=== PATIENT | female | born 1960 | race African-American/Black ===

== ENCOUNTER 2019-09-12 12:00 | Inpatient (IN) | payer MEDICAID, OTHER ==
[~2019-09-12] VITALS: Ht 160 cm; Wt 89.4 kg
[~2019-09-12 12:00] MED LIST: ALBU18 INH; ALPR1TAB7 PO; CARI-277 PO; DIPH50CA PO; HYDR-2595 PO; LISI-646 PO; METO-158 PO; OMEP-337 PO; SENN8.6T92 PO; SIMV-8 PO
[2019-09-12] MEDS ORDERED: ALBUTEROL SULF 2.5 MG/0.5ML(0.5%) NEB SOLN NEB ONE ×2 (12:45→16:15)
[2019-09-12] MEDS ORDERED: IPRATROPIUM BROM 0.5 MG/2.5ML INH SOL NEB ONE (12:45)
[2019-09-12 12:55] LABS: Basophils # (auto) 0 uL; Basophils % (auto) 0.4 % (0.0-2.0); Eosinophils # (auto) 0 uL; Eosinophils % (auto) 0.1 % (0.0-7.0); Hematocrit 41.4 % (36.0-46.0); Hemoglobin 13.7 g/dL (12.2-16.2); Lymphocytes # (auto) 1.1 uL; Lymphocytes % (auto) 8.4 % (10.0-50.0); Mean Corpuscular Hemoglobin 29.9 pg (28.0-32.0); Mean Corpuscular Hgb Conc. 33.2 g/dL (32.0-36.0); Monocytes # (auto) 0.7 uL; Monocytes % (auto) 5.3 % (0.0-12.0); Neutrophils # (auto) 11.1 uL; Neutrophils % (auto) 85.8 % (37.0-80.0); Nucleated Red Blood Cells % 0.1 %; Platelet Count (auto) 225 10^3/uL (140-450); Red Cell Distribution Width 14.3 % (11.8-14.3); White Blood Cell 12.9 10^3/uL (4.4-10.8)
[2019-09-12 13:20] LABS: Albumin 3.7 g/dL (3.4-5.0); Anion Gap 6 (5-15); Blood Urea Nitrogen 9 mg/dL (7-18); Calcium 9.1 mg/dL (8.5-10.1); Carbon Dioxide 26 mmol/L (21-32); Chloride 106 mmol/L (98-107); Glucose 109 mg/dL (74-106); Sodium 138 mmol/L (136-145)
[2019-09-12 13:25] LABS: Alanine Aminotransferase 17 U/L (13-56); Alkaline Phosphatase 87 U/L (45-117); Aspartate Aminotransferase 20 U/L (15-37); BUN/Creatinine Ratio 13.2; Bilirubin, Total 0.1 mg/dL (0.2-1.0); GFR African American 115 mL/min; GFR Non-African American 95 mL/min; Total Protein 8.3 g/dL (6.4-8.2)
[2019-09-12] MEDS ORDERED: cefTRIAXone 1GM/50ML D5W 50 ML IV ONE (13:30)
[2019-09-12] MEDS ORDERED: methylPREDNISolone SOD SUCC 125 MG/2 ML VL IV ONE (13:30)
[2019-09-12] MEDS ORDERED: EPINEPHrine HCL 1 MG/1 ML AMP ONE (14:21)
[2019-09-12] MEDS ORDERED: EPINEPHrine HCL 1 MG/1 ML AMP SC ONE (14:30)
[2019-09-12 14:33] LABS: Urine Bacteria NONE SEEN /hpf (None Seen); Urine Blood Negative /uL (Negative); Urine Specific Gravity 1.005 (1.001-1.035); Urine WBC <1 /hpf (0 - 5)
[2019-09-12] MEDS ORDERED: diphenhdrAMINE HCL 50 MG/1 ML VL ONE (14:34)
[2019-09-12] MEDS ORDERED: diphenhdrAMINE HCL 50 MG/1 ML VL IV ONE (14:45)
[2019-09-12] MEDS: SODIUM CHLORIDE 0.9% 1,000 ML IV SCH (15:12)
[2019-09-12] MEDS ORDERED: PROMETHAZINE HCL 25 MG/ML 1ML IV PRN (15:15)
[2019-09-12] MEDS ORDERED: NITROGLYCERIN 0.4 MG SL TAB SL PRN (15:15)
[2019-09-12] MEDS ORDERED: traMADol HCL 50 MG TAB PO PRN (15:15)
[2019-09-12] MEDS ORDERED: MORPHINE SULF INJ 2 MG/ML SYRINGE 1ML IV PRN (15:15)
[2019-09-12] MEDS: IPRATROPIUM BROM 0.5 MG/2.5ML INH SOL NEB SCH (18:00)
[2019-09-12] MEDS: ALBUTEROL SULF 2.5 MG/0.5ML(0.5%) NEB SOLN NEB SCH (18:00)
[2019-09-12] MEDS: methylPREDNISolone SOD SUCC 40 MG/ML VL IV SCH (18:32)
[2019-09-12 19:53] VITALS: BP 133/89
[2019-09-12 20:30] VITALS: BP 121/54
[2019-09-12] MEDS: HYDROcodone-ACET 10/325MG TAB PO PRN (22:29)
[2019-09-13] MEDS: methylPREDNISolone SOD SUCC 40 MG/ML VL IV SCH ×5 (00:14→17:44)
[2019-09-13] MEDS: IPRATROPIUM BROM 0.5 MG/2.5ML INH SOL NEB SCH ×4 (00:50→20:32)
[2019-09-13] MEDS: ALBUTEROL SULF 2.5 MG/0.5ML(0.5%) NEB SOLN NEB SCH ×4 (00:50→20:33)
[2019-09-13] MEDS: CARISOPRODOL 350 MG TAB PO PRN ×3 (01:26→22:10)
[2019-09-13] MEDS: guaiFENesin 200 MG/10 ML UD PO PRN ×4 (01:26→14:51)
[2019-09-13] MEDS: SODIUM CHLORIDE 0.9% 1,000 ML IV SCH ×2 (04:32→17:44)
[2019-09-13 05:00] VITALS: BP 152/81
[2019-09-13] MEDS: HYDROcodone-ACET 10/325MG TAB PO PRN ×3 (06:25→14:51)
[2019-09-13] MEDS: AZITHROMYCIN 500MG/ 250ML 250 ML IV SCH (09:49)
[2019-09-13] MEDS: ENOXAPARIN SOD 40 MG/0.4 ML SYRINGE SC SCH (09:49)
[2019-09-13 09:56] VITALS: BP 146/109
[2019-09-13 12:55] VITALS: BP 149/75
[2019-09-13 17:01] VITALS: BP 137/99
--- NOTE | 2019-09-13 19:57 | NUR ---
Opening shift note Patient is A&O x4. Family is at the bedside. Patient reports SOB at rest and on exertion. Currently on 3L NC. Reports using 4L at home. Inspiratory and expiratory wheezes noted throughout, anteriorly and posteriorly. O2 increased to 4L. Patient denies pain at this time. Instructed patient to call for assistance when needing to ambulate. Verbalizes understanding. Bed is in low locked position with side rails up x2. Call light is within reach. Will continue to monitor for changes PRN.
[2019-09-13 22:00] VITALS: BP 148/84
[2019-09-13] MEDS: ALPRAZolam 0.5 MG TAB PO PRN (22:10)
[2019-09-14] MEDS: ALBUTEROL SULF 2.5 MG/0.5ML(0.5%) NEB SOLN NEB SCH ×5 (00:18→23:58)
[2019-09-14] MEDS: IPRATROPIUM BROM 0.5 MG/2.5ML INH SOL NEB SCH ×5 (00:18→23:58)
[2019-09-14] MEDS: methylPREDNISolone SOD SUCC 40 MG/ML VL IV SCH ×4 (00:28→18:24)
--- NOTE | 2019-09-14 02:59 | NUR ---
Patient reports dryness in nares. Humidification chamber added to 02. Patient tolerates well.
[2019-09-14 06:00] VITALS: BP 138/89
[2019-09-14] MEDS: SODIUM CHLORIDE 0.9% 1,000 ML IV SCH (07:12)
[2019-09-14 08:54] VITALS: BP 127/66
[2019-09-14] MEDS: HYDROcodone-ACET 10/325MG TAB PO PRN ×2 (09:17→20:01)
[2019-09-14] MEDS: ALBUTEROL SULF 2.5 MG/0.5ML(0.5%) NEB SOLN NEB PRN (09:55)
[2019-09-14] MEDS: ENOXAPARIN SOD 40 MG/0.4 ML SYRINGE SC SCH (10:04)
[2019-09-14] MEDS: AZITHROMYCIN 500MG/ 250ML 250 ML IV SCH (10:04)
[2019-09-14] MEDS: ALPRAZolam 0.5 MG TAB PO PRN (10:13)
[2019-09-14] MEDS: guaiFENesin 200 MG/10 ML UD PO PRN (10:31)
[2019-09-14] MEDS ORDERED: FUROSEMIDE 40 MG/4 ML VIAL IV ONE (10:45)
[2019-09-14] MEDS ORDERED: POTASSIUM EFFERVESENT TAB 25 MEQ PO ONE (10:45)
[2019-09-14 12:50] VITALS: BP 120/78
[2019-09-14 17:21] VITALS: BP 141/89
--- NOTE | 2019-09-14 19:40 | NUR ---
Opening shift note Patient is A&O x4. Reports SOB at rest and on exertion. Currently on 3L NC; reports using 4L at home. Inspiratory and expiratory wheezes noted throughout, anteriorly and posteriorly. Patient denies pain at this time. Instructed patient to call for assistance when needing to ambulate. Verbalizes understanding. Bed is in low locked position with side rails up x2. Call light is within reach. Will continue to monitor for changes PRN.
[2019-09-14 21:09] VITALS: BP 141/89
[2019-09-14 22:00] VITALS: BP 146/95
[2019-09-15] MEDS: methylPREDNISolone SOD SUCC 40 MG/ML VL IV SCH ×5 (00:06→23:37)
[2019-09-15] MEDS: CARISOPRODOL 350 MG TAB PO PRN ×2 (00:06→15:09)
[2019-09-15] MEDS: HYDROcodone-ACET 10/325MG TAB PO PRN ×3 (04:16→23:55)
[2019-09-15 05:00] VITALS: BP 139/81
[2019-09-15] MEDS: ACETAMINOPHEN 500 MG TAB PO PRN (05:29)
[2019-09-15] MEDS: ALBUTEROL SULF 2.5 MG/0.5ML(0.5%) NEB SOLN NEB SCH ×4 (06:58→23:59)
[2019-09-15] MEDS: IPRATROPIUM BROM 0.5 MG/2.5ML INH SOL NEB SCH ×4 (06:58→23:59)
--- NOTE | 2019-09-15 07:55 | NUR ---
Opening Shift Note Assumed care of patient, awake and alert sitting up in bed. No S/S of distress/SOB or pain. Instructed on POC and to call for assist PRN, bed in locked and lowest position and call light is within reach. Will continue to monitor for changes Q1hr and PRN.
[2019-09-15 09:00] VITALS: BP 149/92
--- NOTE | 2019-09-15 10:36 | NUR ---
Dr. Addison bedside with patient discussing plan of care. Orders carried out as given per Doctor.
[2019-09-15] MEDS: AZITHROMYCIN 500MG/ 250ML 250 ML IV SCH (10:41)
[2019-09-15] MEDS: ENOXAPARIN SOD 40 MG/0.4 ML SYRINGE SC SCH (10:41)
--- NOTE | 2019-09-15 10:56 | NUR ---
Patient leaving floor via WC for Chest CT
[2019-09-15] MEDS: guaiFENesin 200 MG/10 ML UD PO SCH ×3 (11:47→21:31)
[2019-09-15 13:00] VITALS: BP 163/97
[2019-09-15] MEDS ORDERED: HYDR12.56 PO (14:43)
[2019-09-15] MEDS ORDERED: FAMO-12 PO (14:43)
[2019-09-15] MEDS ORDERED: CLON0.1T PO (14:43)
--- NOTE | 2019-09-15 15:00 | NUR ---
Paged Dr. Addison regarding patients BP, 165/97. Home meds have been updated to reflect the BP meds taken at home. Patient would like medications started.
--- NOTE | 2019-09-15 15:18 | NUR ---
Spoke to Dr. Addison regarding patients BP. Orders received and carried out.
[2019-09-15] MEDS: cloNIDine HCL 0.1 MG TAB PO SCH (15:34)
[2019-09-15 17:00] VITALS: BP 150/101
[2019-09-15] MEDS ORDERED: cloNIDine HCL 0.1 MG TAB ONE (18:06)
[2019-09-15] MEDS: cloNIDine HCL 0.1 MG TAB PO PRN (18:10)
[2019-09-15] MEDS: ALPRAZolam 0.5 MG TAB PO PRN (18:27)
--- NOTE | 2019-09-15 19:30 | NUR ---
Opening Shift Note Assumed care of patient, AOx4. No S/S of distress/SOB or pain. Fall and safety precautions in place. Call light within reach. Instructed on POC and to call for assist PRN, will continue to monitor for changes Q1hr and PRN.
[2019-09-15 22:00] VITALS: BP 140/95
[2019-09-16] MEDS: ACETAMINOPHEN 500 MG TAB PO PRN (01:41)
[2019-09-16] MEDS: TEMAZEPAM 15 MG CAP PO PRN (02:50)
--- NOTE | 2019-09-16 03:28 | NUR ---
RT Paged RT paged for patient's SOB. Will continue to monitor.
[2019-09-16] MEDS: ALBUTEROL SULF 2.5 MG/0.5ML(0.5%) NEB SOLN NEB PRN (03:33)
[2019-09-16 05:17] VITALS: BP 143/89
[2019-09-16] MEDS: methylPREDNISolone SOD SUCC 40 MG/ML VL IV SCH ×4 (06:08→23:02)
[2019-09-16] MEDS: guaiFENesin 200 MG/10 ML UD PO SCH ×4 (06:09→22:12)
[2019-09-16] MEDS: IPRATROPIUM BROM 0.5 MG/2.5ML INH SOL NEB SCH ×3 (06:41→19:02)
[2019-09-16] MEDS: ALBUTEROL SULF 2.5 MG/0.5ML(0.5%) NEB SOLN NEB SCH ×3 (06:42→19:02)
--- NOTE | 2019-09-16 07:45 | NUR ---
Opening Shift Note Assumed care of patient, awake and alert, sitting up in bed eating breakfast. No S/S of distress/SOB or pain. Instructed on POC and to call for assist PRN, bed in locked and lowest position and call light within reach. Will continue to monitor for changes Q1hr and PRN.
[2019-09-16 08:00] VITALS: BP 151/104
[2019-09-16] MEDS ORDERED: PANT40TA2 PO (08:25)
[2019-09-16] MEDS: HYDROcodone-ACET 10/325MG TAB PO PRN ×3 (08:33→21:15)
[2019-09-16] MEDS: AZITHROMYCIN 500MG/ 250ML 250 ML IV SCH (09:21)
[2019-09-16] MEDS: cloNIDine HCL 0.1 MG TAB PO SCH (09:21)
[2019-09-16] MEDS: ENOXAPARIN SOD 40 MG/0.4 ML SYRINGE SC SCH (09:22)
[2019-09-16] MEDS: HCTZ 25 MG TAB PO SCH (09:22)
[2019-09-16 10:57] LABS: Hematocrit 39.8 % (36.0-46.0); Mean Corpuscular Hemoglobin 29.9 pg (28.0-32.0); Mean Corpuscular Hgb Conc. 32.6 g/dL (32.0-36.0); Mean Corpuscular Volume 91.7 fL (80.0-100.0); Platelet Count (auto) 239 10^3/uL (140-450); Red Blood Cells 4.34 10^6/uL (4.0-5.20); Red Cell Distribution Width 14.3 % (11.8-14.3); White Blood Cell 8.5 10^3/uL (4.4-10.8)
[2019-09-16 11:04] LABS: BUN/Creatinine Ratio 18.8; Calcium 8.4 mg/dL (8.5-10.1); Potassium 3.7 mmol/L (3.5-5.1)
[2019-09-16 11:06] LABS: Basophils % (manual) 0 (0.0-2.0); Blast Cells 0; Metamyelocytes % 0; Myelocytes % 0; Promyelocytes % 0; Reactive Lymphocytes 0
[2019-09-16 11:43] LABS: Band Neutrophils % (manual) 2; Eosinophils % (manual) 1 (0-7); Lymphocytes % (manual) 16 (10.0-50.0); Monocytes % (manual) 8 (0-12)
[2019-09-16 12:00] VITALS: BP 146/94
--- NOTE | 2019-09-16 12:15 | NUR ---
Dr. Addison bedside with patient discussing plan of care. Orders received and carried out.
[2019-09-16] MEDS: FAMOTIDINE 20 MG TAB PO SCH (12:51)
[2019-09-16] MEDS: PANTOPRAZOLE 40 MG TAB PO SCH (12:51)
--- NOTE | 2019-09-16 12:59 | NUR ---
NUTRITION ASSESSMENT NOTES Please refer to link notes of nutrition screen form filed under the intervention section of the plan of care for further details. Est. Needs based on AdBW (72 kg): 1350 kcal to 1800 kcal (15-20 kcal/kgBW), 52 gms to 62 gms pro (1.0-1.2 gms/kgIBW: 52 kg). Will continue to monitor pertinent labs and reassess nutrient need prn Thank you. Addendum: 09/16/19 at [address] Amended: Links added.
--- NOTE | 2019-09-16 15:00 | NUR ---
Dr. Ngo on unit regarding patient.
--- NOTE | 2019-09-16 15:23 | NUR ---
assessment Patient is a 58 year old female who is alert and oriented. Patients cognitive abilities are intact. Prior to admission patient lived home with her daughter Lizzeth and family and functioned independently. Patient informed me she is able to care for her own ADLs. Patient informed me she has home 02. Patient informed me her PCP is Dr Davidson. I informed patient she has a right to speak to a director of social work regarding all care. I informed patient she has a right to participate in any and all discharge planning. Patient does not have a POA and advanced directive. I have offered patient information on POA and advanced directives. I informed the patient the advantages and benefits of having an Advanced Directive. Patient verbalized understanding and agreed to discharge plan. Addendum: 09/16/19 at 1530 by Aneta SAINI Amended: Links added.
[2019-09-16] MEDS: cloNIDine HCL 0.1 MG TAB PO PRN ×2 (16:35→18:45)
[2019-09-16 17:00] VITALS: BP 163/108
--- NOTE | 2019-09-16 19:40 | NUR ---
Opening Shift Note Assumed care of patient, AOx4. Patient calm, relaxed, and appropriate. Fall and safety precautions in place. Call light within reach. Instructed on POC and to call for assist PRN, will continue to monitor for changes Q1hr and PRN.
[2019-09-16 22:00] VITALS: BP 155/96
[2019-09-16] MEDS: ALPRAZolam 0.5 MG TAB PO PRN (22:12)
[2019-09-17] MEDS: IPRATROPIUM BROM 0.5 MG/2.5ML INH SOL NEB SCH ×4 (00:17→19:50)
[2019-09-17] MEDS: ALBUTEROL SULF 2.5 MG/0.5ML(0.5%) NEB SOLN NEB SCH ×4 (00:17→19:50)
[2019-09-17 05:00] VITALS: BP 153/91
[2019-09-17] MEDS: methylPREDNISolone SOD SUCC 40 MG/ML VL IV SCH ×4 (05:34→23:49)
[2019-09-17] MEDS: guaiFENesin 200 MG/10 ML UD PO SCH ×4 (06:06→22:00)
[2019-09-17 06:44] LABS: Potassium 4.1 mmol/L (3.5-5.1)
[2019-09-17 06:47] LABS: Hematocrit 38.7 % (36.0-46.0); Hemoglobin 12.9 g/dL (12.2-16.2); Mean Corpuscular Hemoglobin 30.7 pg (28.0-32.0); Mean Corpuscular Hgb Conc. 33.4 g/dL (32.0-36.0); Mean Corpuscular Volume 91.8 fL (80.0-100.0); Platelet Count (auto) 242 10^3/uL (140-450); Red Blood Cells 4.21 10^6/uL (4.0-5.20); Red Cell Distribution Width 14.2 % (11.8-14.3); White Blood Cell 9.5 10^3/uL (4.4-10.8)
[2019-09-17 06:54] LABS: Calcium 8.2 mg/dL (8.5-10.1)
[2019-09-17 06:56] LABS: Band Neutrophils % (manual) 0; Basophils % (manual) 0 (0.0-2.0); Blast Cells 0; Metamyelocytes % 0; Myelocytes % 0; Promyelocytes % 0; Reactive Lymphocytes 0
[2019-09-17 07:38] LABS: Eosinophils % (manual) 1 (0-7); Lymphocytes % (manual) 12 (10.0-50.0); Monocytes % (manual) 7 (0-12)
[2019-09-17 08:00] VITALS: BP 153/100
--- NOTE | 2019-09-17 08:15 | NUR ---
REGARDING INCENTIVE SPIROMETER; IS PROVIDED TO PATIENT. PATIENT INSTRUCTED ON PURPOSE AND USE OF IS. PATIENT RETURNED DEMONSTRATIONS. 750ML OF PRESSURE MAINTAINED.
[2019-09-17] MEDS: AZITHROMYCIN 500MG/ 250ML 250 ML IV SCH (08:43)
[2019-09-17] MEDS: FAMOTIDINE 20 MG TAB PO SCH (08:43)
[2019-09-17] MEDS: ENOXAPARIN SOD 40 MG/0.4 ML SYRINGE SC SCH (08:43)
[2019-09-17] MEDS: cloNIDine HCL 0.1 MG TAB PO SCH (08:44)
[2019-09-17] MEDS: PANTOPRAZOLE 40 MG TAB PO SCH (08:44)
[2019-09-17] MEDS: HCTZ 25 MG TAB PO SCH (08:44)
--- NOTE | 2019-09-17 09:30 | NUR ---
IV insertion IV access obtained, via clean sterile technique by inserting 20 gauge catheter at RFA after 1 attempt(s). IV secured properly. No trauma to site. Patient tolerated well. LFA IV DC'D DUE TO INFILTRATION. NOTE:
[2019-09-17 12:00] VITALS: BP 143/87
[2019-09-17] MEDS: HYDROcodone-ACET 10/325MG TAB PO PRN (12:52)
[2019-09-17] MEDS: CARISOPRODOL 350 MG TAB PO PRN (15:10)
--- NOTE | 2019-09-17 16:55 | NUR ---
IV insertion IV access obtained, via clean sterile technique by inserting 20 gauge catheter at LFA after 1 attempt(s). IV secured properly. No trauma to site. Patient tolerated well. RFA DC'D DUE TO INFILTRATION NOTE:
[2019-09-17 17:00] VITALS: BP 162/102
[2019-09-17] MEDS: cloNIDine HCL 0.1 MG TAB PO PRN (17:20)
--- NOTE | 2019-09-17 18:20 | NUR ---
PATIENT STATES CODEINE MAKES HER ITCHY. PATIENT NOTED TO HAVE MILD TONGUE SWELLING. INFORMED MANAGER KNOWLEDGE CHRIS RECIEVED NEW ORDERS. SEE EMR. WILL FOLLOW THROUGH.
[2019-09-17] MEDS ORDERED: methylPREDNISolone SOD SUCC 125 MG/2 ML VL IV ONE (18:45)
[2019-09-17] MEDS ORDERED: diphenhdrAMINE HCL 50 MG/1 ML VL IV ONE (18:45)
--- NOTE | 2019-09-17 19:30 | NUR ---
Opening Shift Note Assumed care of patient, AOx4. No S/S of distress, visitors at bedside. Fall and safety precautions in place. Call light within reach and able to use. Instructed on POC and to call for assist PRN, will continue to monitor for changes Q1hr and PRN.
[2019-09-17 19:53] VITALS: BP 119/70
[2019-09-17] MEDS: KETOROLAC TROMETH 30 MG/ML 1ML VIAL IV PRN (20:11)
[2019-09-17 22:07] VITALS: BP 148/92
--- NOTE | 2019-09-17 22:19 | NUR ---
PT REFUSED ROBITUSSIN Pt states "taking too much of that cough syrup makes me itch and get all choked up". Patient states she is sensitive to codeine.
[2019-09-18] MEDS: ACETAMINOPHEN 500 MG TAB PO PRN (00:04)
--- NOTE | 2019-09-18 00:05 | NUR ---
HOSPITALIST PAGE The patient is complaining of gas pain and requested medication for gas relief. Hospitalist has been paged.
[2019-09-18] MEDS: KETOROLAC TROMETH 30 MG/ML 1ML VIAL IV PRN ×4 (03:46→23:35)
[2019-09-18 05:20] VITALS: BP 153/94
[2019-09-18] MEDS: methylPREDNISolone SOD SUCC 40 MG/ML VL IV SCH ×4 (05:35→23:41)
[2019-09-18] MEDS: guaiFENesin 200 MG/10 ML UD PO SCH ×4 (06:03→22:00)
[2019-09-18] MEDS: ALBUTEROL SULF 2.5 MG/0.5ML(0.5%) NEB SOLN NEB SCH ×3 (06:39→19:54)
[2019-09-18] MEDS: IPRATROPIUM BROM 0.5 MG/2.5ML INH SOL NEB SCH ×3 (06:39→19:54)
--- NOTE | 2019-09-18 06:49 | NUR ---
HOSP PAGED HOSPITALIST PAGED. PATIENT STATES SHE FEELS CHOKED UP FROM THE ROBITUSSIN. AWAITING CALL BACK. WILL CONTINUE TO MONITOR.
--- NOTE | 2019-09-18 07:20 | NUR ---
HOSP RETURNED CALL NEW ORDERS RECEIVED. WILL CARRY OUT.
[2019-09-18] MEDS ORDERED: diphenhdrAMINE HCL 25 MG CAP PO ONE (07:30)
[2019-09-18 08:00] VITALS: BP 163/95
[2019-09-18] MEDS: CARISOPRODOL 350 MG TAB PO PRN (08:39)
[2019-09-18] MEDS: ALPRAZolam 0.5 MG TAB PO PRN (08:40)
[2019-09-18] MEDS: AZITHROMYCIN 500MG/ 250ML 250 ML IV SCH (09:50)
[2019-09-18] MEDS: cloNIDine HCL 0.1 MG TAB PO SCH (09:53)
[2019-09-18] MEDS: ENOXAPARIN SOD 40 MG/0.4 ML SYRINGE SC SCH (09:53)
[2019-09-18] MEDS: PANTOPRAZOLE 40 MG TAB PO SCH (09:53)
[2019-09-18] MEDS: FAMOTIDINE 20 MG TAB PO SCH (09:54)
[2019-09-18] MEDS: HCTZ 25 MG TAB PO SCH (09:54)
[2019-09-18] MEDS: cloNIDine HCL 0.1 MG TAB PO PRN (11:51)
[2019-09-18 12:00] VITALS: BP 177/111
[2019-09-18] MEDS: LACTULOSE 20Gm/30ML SOLN PO PRN (16:01)
[2019-09-18 17:00] VITALS: BP 155/91
--- NOTE | 2019-09-18 18:42 | NUR ---
Closing Note Patient sitting up in bed, shows no signs of distress at this time. Bed in lowest locked position, side rails up x2 and call light within reach.
--- NOTE | 2019-09-18 19:20 | NUR ---
Opening Shift Note Assumed care of patient, awake and alert. No S/S of distress/SOB but complains of abdominal pain. She states that the pain is due to constipation and "eating too much food". Instructed on POC and to call for assist PRN, will continue to monitor for changes Q1hr and PRN.
[2019-09-18 22:00] VITALS: BP 147/96
[2019-09-18] MEDS: TEMAZEPAM 15 MG CAP PO PRN (23:43)
[2019-09-19] MEDS: IPRATROPIUM BROM 0.5 MG/2.5ML INH SOL NEB SCH ×4 (00:35→18:46)
[2019-09-19] MEDS: ALBUTEROL SULF 2.5 MG/0.5ML(0.5%) NEB SOLN NEB SCH ×4 (00:35→18:46)
--- NOTE | 2019-09-19 00:40 | NUR ---
HOSPITALIST CALL BACK Discussed the patient's gas pain with HAZEL Leigh. New order has been received.
[2019-09-19] MEDS: SIMETHICONE 80 MG CHEWABLE TABLET PO PRN ×2 (03:56→20:10)
[2019-09-19 05:00] VITALS: BP 147/88
--- NOTE | 2019-09-19 05:15 | NUR ---
HOSPITALIST PAGED The patient reported feeling "tightness" in her throat and requested Benadryl. Discussed symptom with HAZEL Leigh. New order for 25 mg Benadryl PO ONCE obtained. Will continue to monitor the patient.
[2019-09-19] MEDS ORDERED: diphenhdrAMINE HCL 25 MG CAP PO ONE (05:30)
[2019-09-19] MEDS: methylPREDNISolone SOD SUCC 40 MG/ML VL IV SCH (05:43)
[2019-09-19] MEDS: guaiFENesin 200 MG/10 ML UD PO SCH ×4 (07:00→22:00)
[2019-09-19 08:00] VITALS: BP 169/98
[2019-09-19] MEDS: KETOROLAC TROMETH 30 MG/ML 1ML VIAL IV PRN ×3 (08:07→22:45)
[2019-09-19] MEDS: ALPRAZolam 0.5 MG TAB PO PRN (08:07)
[2019-09-19] MEDS: LACTULOSE 20Gm/30ML SOLN PO PRN (08:07)
[2019-09-19] MEDS: ENOXAPARIN SOD 40 MG/0.4 ML SYRINGE SC SCH (09:20)
[2019-09-19] MEDS: PANTOPRAZOLE 40 MG TAB PO SCH (09:20)
[2019-09-19] MEDS: AZITHROMYCIN 500MG/ 250ML 250 ML IV SCH (09:21)
[2019-09-19] MEDS: cloNIDine HCL 0.1 MG TAB PO SCH (09:21)
[2019-09-19] MEDS: FAMOTIDINE 20 MG TAB PO SCH (09:22)
[2019-09-19] MEDS: HCTZ 25 MG TAB PO SCH (09:22)
[2019-09-19] MEDS ORDERED: predniSONE 20 MG TAB PO ONE (10:30)
[2019-09-19] MEDS: CARISOPRODOL 350 MG TAB PO PRN (11:24)
[2019-09-19] MEDS: ACETAMINOPHEN 500 MG TAB PO PRN (11:24)
[2019-09-19 12:00] VITALS: BP 141/91
--- NOTE | 2019-09-19 12:16 | NUR ---
Nutrition Follow-up Notes Wt.: 92.5 kg Pt was sleeping with n family by bedside. per pt records pt with COPD exacerbation now improving. pt with no distress noted per nursing currently on 2 gm na diet with adequate PO of 75% x 4 per RN doc Est. Needs based on AdBW (72 kg): 1350 kcal to 1800 kcal (15-20 kcal/kgBW), 52 gms to 62 gms pro (1.0-1.2 gms/kgIBW: 52 kg). Will continue to monitor pertinent labs and reassess nutrient need prn Labs: CO2 35 H, GLU 159 H, CA 8.2 L. Skin: Ahsan scale 19 low risk, skin intact per manager documentation GI: Pt had 1 BM today per manager documentation. PES: Altered nutrition related lab values r/t current/chronic medical condition aeb hyperglycemia, hypocalcemia Obesity r.t excessive PO intake aeb 172% IBW, BMI 35.1 kg/m2 and increased body adiposity Will continue to monitor PO intake, pertinent labs, skin status and weight trends. F/u in 3-5 days. Additional Rec.: 1.) Consider Cardiac: 2 gms Na, Low Chol, Low Fat diet 2.) Continue close supervision with meals. 3.) Refer to RD for further nutrition educ. and weight monitoring upon discharge. 4.) Continue current plan of care.
[2019-09-19 16:57] VITALS: BP 142/94
--- NOTE | 2019-09-19 19:20 | NUR ---
Opening Shift Note Assumed care of patient, awake and alert. No S/S of distress/SOB but the patient complains of 5/10 abdominal pain. Patient does not request pain medication at this time. Instructed on POC and to call for assist PRN, will continue to monitor for changes Q1hr and PRN.
[2019-09-19 21:09] VITALS: BP_SYST 125; BP_SYST 133; BP_DIAS 71; BP_DIAS 75
[2019-09-19] MEDS: TEMAZEPAM 15 MG CAP PO PRN (22:45)
[2019-09-20] MEDS: ALBUTEROL SULF 2.5 MG/0.5ML(0.5%) NEB SOLN NEB SCH ×4 (00:10→19:51)
[2019-09-20] MEDS: IPRATROPIUM BROM 0.5 MG/2.5ML INH SOL NEB SCH ×4 (00:10→19:51)
[2019-09-20 04:14] VITALS: BP 157/99
[2019-09-20] MEDS: KETOROLAC TROMETH 30 MG/ML 1ML VIAL IV PRN ×3 (05:07→19:09)
[2019-09-20] MEDS: CARISOPRODOL 350 MG TAB PO PRN ×2 (05:45→19:09)
[2019-09-20] MEDS: ACETAMINOPHEN 500 MG TAB PO PRN ×3 (05:59→23:14)
[2019-09-20] MEDS: guaiFENesin 200 MG/10 ML UD PO SCH ×4 (06:54→21:48)
--- NOTE | 2019-09-20 07:00 | NUR ---
HOSPITALIST PAGED The patient is complaining of severe joint pain. She states that her gout and arthritis is "acting up". The patient reports that she takes Mosier 10 at home which controls her pain. Notified Dr. Moralez. New order received and verified.
[2019-09-20] MEDS ORDERED: HYDROcodone-ACET 10/325MG TAB PO ONE (07:45)
--- NOTE | 2019-09-20 08:50 | NUR ---
PT REPORTS THAT SHE CONTROLS PAIN AT HOME WITH NORCO. CODEINE DOES NOT PRODUCE ALLERGIC REACTION. PAIN MEDICATION ADMINISTERED PER EMAR. CALL LIGHT WITHIN REACH. WILL CONTINUE TO MONITOR.
[2019-09-20 09:00] VITALS: BP 146/89
[2019-09-20] MEDS: ENOXAPARIN SOD 40 MG/0.4 ML SYRINGE SC SCH (09:34)
[2019-09-20] MEDS: PANTOPRAZOLE 40 MG TAB PO SCH (09:35)
[2019-09-20] MEDS: cloNIDine HCL 0.1 MG TAB PO SCH (09:35)
[2019-09-20] MEDS: predniSONE 20 MG TAB PO SCH (09:35)
[2019-09-20] MEDS: HCTZ 25 MG TAB PO SCH (09:35)
[2019-09-20] MEDS: FAMOTIDINE 20 MG TAB PO SCH (09:36)
--- NOTE | 2019-09-20 09:40 | NUR ---
PASSED MORNING MEDICATIONS, PT TOLERATED WELL. SHALLOW BREATHING EFFORT ON 3LNC AT 99% TOLERATING WELL. BED LOCKED AND IN LOWEST POSITION, CALL LIGHT WITHIN REACH. WILL CONTINUE TO MONITOR.
[2019-09-20 13:00] VITALS: BP 153/85
[2019-09-20] MEDS ORDERED: POTASSIUM CHL 10 Meq TABLET PO ONE (15:30)
[2019-09-20] MEDS ORDERED: FUROSEMIDE 40 MG TAB PO ONE (15:30)
[2019-09-20] MEDS ORDERED: HCTZ 25 MG TAB PO ONE (15:45)
[2019-09-20 17:00] VITALS: BP 130/71
--- NOTE | 2019-09-20 19:25 | NUR ---
Opening Shift Note Report received from day shift RN. Assumed care of patient, awake sitting in bed and A&O x4. No S/S of distress/SOB noted. Patient states having pain to her legs d/t gout 8/10 on a numerical pain scale. Will medicate patient as ordered. Bed locked and in the lowest position with side rails up x2 and call light left within reach. Instructed on POC and to call for assist PRN, will continue to monitor for changes Q1hr and PRN.
[2019-09-20 20:43] VITALS: BP 130/71
[2019-09-20] MEDS: TEMAZEPAM 15 MG CAP PO PRN (21:48)
[2019-09-20 22:19] VITALS: BP 123/70
[2019-09-21] MEDS: IPRATROPIUM BROM 0.5 MG/2.5ML INH SOL NEB SCH ×4 (00:55→19:19)
[2019-09-21] MEDS: ALBUTEROL SULF 2.5 MG/0.5ML(0.5%) NEB SOLN NEB SCH ×4 (00:55→19:19)
[2019-09-21] MEDS: KETOROLAC TROMETH 30 MG/ML 1ML VIAL IV PRN ×3 (02:15→14:17)
[2019-09-21 04:41] VITALS: BP 145/83
[2019-09-21] MEDS ORDERED: MORPHINE SULFATE 4 MG/ML SYR/VIAL IV ONE (05:15)
[2019-09-21] MEDS ORDERED: SODIUM CHLORIDE 0.9 % NEB SOLN 3ML NEB ONE (05:34)
--- NOTE | 2019-09-21 05:50 | NUR ---
IV removal IV TO LEFT FOREARM NOTED TO BE LEAKING. DC'd with clean sterile technique, catheter fully intact. Pressure dressing applied to site. IV insertion IV access obtained, via clean sterile technique by inserting 22 gauge catheter at LEFT FOREARM, after 1 attempt(s). IV secured properly. No trauma to site. Patient tolerated well.
[2019-09-21 06:29] LABS: Hematocrit 39.3 % (36.0-46.0); Hemoglobin 12.7 g/dL (12.2-16.2); Mean Corpuscular Hemoglobin 29.8 pg (28.0-32.0); Mean Corpuscular Hgb Conc. 32.2 g/dL (32.0-36.0); Mean Corpuscular Volume 92.4 fL (80.0-100.0); Platelet Count (auto) 264 10^3/uL (140-450); Red Blood Cells 4.25 10^6/uL (4.0-5.20); White Blood Cell 9.9 10^3/uL (4.4-10.8)
[2019-09-21 06:46] LABS: Basophils % (manual) 0 (0.0-2.0); Blast Cells 0; Myelocytes % 0; Promyelocytes % 0; Reactive Lymphocytes 0
[2019-09-21 06:59] LABS: BUN/Creatinine Ratio 35.8
[2019-09-21] MEDS: guaiFENesin 200 MG/10 ML UD PO SCH ×4 (06:59→21:09)
[2019-09-21 07:49] LABS: Band Neutrophils % (manual) 2; Eosinophils % (manual) 2 (0-7); Lymphocytes % (manual) 31 (10.0-50.0); Metamyelocytes % 2; Monocytes % (manual) 5 (0-12)
[2019-09-21] MEDS: CARISOPRODOL 350 MG TAB PO PRN (08:16)
[2019-09-21 09:00] VITALS: BP 155/81
[2019-09-21] MEDS ORDERED: FUROSEMIDE 40 MG TAB PO SCH (10:00)
[2019-09-21] MEDS: cloNIDine HCL 0.1 MG TAB PO SCH (10:02)
[2019-09-21] MEDS: FAMOTIDINE 20 MG TAB PO SCH (10:02)
[2019-09-21] MEDS: POTASSIUM CHL 10 Meq TABLET PO SCH (10:03)
[2019-09-21] MEDS: ENOXAPARIN SOD 40 MG/0.4 ML SYRINGE SC SCH (10:03)
[2019-09-21] MEDS: PANTOPRAZOLE 40 MG TAB PO SCH (10:03)
[2019-09-21] MEDS: HCTZ 25 MG TAB PO SCH (10:03)
[2019-09-21] MEDS: predniSONE 20 MG TAB PO SCH (10:03)
[2019-09-21] MEDS: ACETAMINOPHEN 500 MG TAB PO PRN ×2 (11:33→19:58)
[2019-09-21] MEDS: ALPRAZolam 0.5 MG TAB PO PRN (11:34)
[2019-09-21 13:00] VITALS: BP 142/86
--- NOTE | 2019-09-21 14:04 | NUR ---
PT DECLINED P.T. BECAUSE OF KNEE PAIN.
--- NOTE | 2019-09-21 15:20 | NUR ---
DR. WILLIAMSON IN TO SEE PT. PLAN OF CARE DISCUSSED; PT IN AGREEMENT.
[2019-09-21] MEDS ORDERED: ALLOPURINOL 300 MG TAB PO ONE (15:45)
[2019-09-21] MEDS ORDERED: COLCHICINE 0.6 MG CAP PO ONE (15:45)
[2019-09-21] MEDS: HYDROcodone-ACET 10/325MG TAB PO PRN (16:19)
[2019-09-21 17:00] VITALS: BP 124/75
--- NOTE | 2019-09-21 19:30 | NUR ---
Opening Shift Note Assumed care of patient, AOx4. Visitor at bedside. Fall and safety precautions in place. Call light within reach and able to use. Instructed on POC and to call for assist PRN, will continue to monitor for changes Q1hr and PRN.
[2019-09-21] MEDS: COLCHICINE 0.6 MG CAP PO SCH (21:09)
[2019-09-21 22:00] VITALS: BP 133/78
[2019-09-22] MEDS: ALBUTEROL SULF 2.5 MG/0.5ML(0.5%) NEB SOLN NEB SCH ×4 (00:09→19:01)
[2019-09-22] MEDS: IPRATROPIUM BROM 0.5 MG/2.5ML INH SOL NEB SCH ×4 (00:09→19:01)
[2019-09-22] MEDS: HYDROcodone-ACET 10/325MG TAB PO PRN ×2 (03:54→12:48)
[2019-09-22 04:30] VITALS: BP 140/87
[2019-09-22 05:56] LABS: Basophils # (auto) 0 uL; Basophils % (auto) 0.3 % (0.0-2.0); Eosinophils # (auto) 0.2 uL; Eosinophils % (auto) 1.9 % (0.0-7.0); Hematocrit 37.3 % (36.0-46.0); Hemoglobin 12.3 g/dL (12.2-16.2); Lymphocytes # (auto) 2.1 uL; Mean Corpuscular Hemoglobin 29.7 pg (28.0-32.0); Mean Corpuscular Hgb Conc. 32.9 g/dL (32.0-36.0); Mean Corpuscular Volume 90.4 fL (80.0-100.0); Monocytes # (auto) 0.5 uL; Monocytes % (auto) 4.6 % (0.0-12.0); Neutrophils # (auto) 8.7 uL; Neutrophils % (auto) 75.2 % (37.0-80.0); Platelet Count (auto) 291 10^3/uL (140-450); Red Blood Cells 4.12 10^6/uL (4.0-5.20); Red Cell Distribution Width 14.9 % (11.8-14.3); White Blood Cell 11.6 10^3/uL (4.4-10.8)
[2019-09-22] MEDS: guaiFENesin 200 MG/10 ML UD PO SCH ×3 (06:01→17:25)
[2019-09-22] MEDS: ACETAMINOPHEN 500 MG TAB PO PRN ×2 (06:02→17:24)
[2019-09-22 06:09] LABS: Potassium 4.3 mmol/L (3.5-5.1)
[2019-09-22 06:16] LABS: BUN/Creatinine Ratio 31.8; Calcium 7.9 mg/dL (8.5-10.1); Uric Acid 3.2 mg/dL (2.6-6.0)
[2019-09-22] MEDS: CARISOPRODOL 350 MG TAB PO PRN (08:06)
[2019-09-22 09:00] VITALS: BP 131/83
[2019-09-22] MEDS ORDERED: ALLOPURINOL 300 MG TAB PO SCH (10:00)
[2019-09-22] MEDS: COLCHICINE 0.6 MG CAP PO SCH (10:07)
[2019-09-22] MEDS: predniSONE 20 MG TAB PO SCH (10:07)
[2019-09-22] MEDS: POTASSIUM CHL 10 Meq TABLET PO SCH (10:07)
[2019-09-22] MEDS: PANTOPRAZOLE 40 MG TAB PO SCH (10:07)
[2019-09-22] MEDS: ENOXAPARIN SOD 40 MG/0.4 ML SYRINGE SC SCH (10:07)
[2019-09-22] MEDS: FAMOTIDINE 20 MG TAB PO SCH (10:07)
[2019-09-22] MEDS: HCTZ 25 MG TAB PO SCH (10:08)
[2019-09-22] MEDS: cloNIDine HCL 0.1 MG TAB PO SCH (10:08)
--- NOTE | 2019-09-22 12:38 | NUR ---
Nutrition Follow-up Notes Wt.: 89.4 kg Pt was sleeping with n family by bedside. per pt records pt with COPD exacerbation now improving. pt with no distress noted per nursing currently on 2 gm na diet with adequate PO of >75% x 6 per RN doc Est. Needs based on AdBW (72 kg): 1350 kcal to 1800 kcal (15-20 kcal/kgBW), 52 gms to 62 gms pro (1.0-1.2 gms/kgIBW: 52 kg). Will continue to monitor pertinent labs and reassess nutrient need prn Labs: CO2 35 H, BUN 21 H, CA 7.9 L. Skin: Ahsan scale 20 low risk, skin intact per gut dropper GI: Pt had 1 BM today per gut dropper. PES: Altered nutrition related lab values r/t current/chronic medical condition aeb hyperglycemia, hypocalcemia Obesity r.t excessive PO intake aeb 172% IBW, BMI 35.1 kg/m2 and increased body adiposity Will continue to monitor PO intake, pertinent labs, skin status and weight trends. F/u in 3-5 days. Additional Rec.: 1.) Consider Cardiac: 2 gms Na, Low Chol, Low Fat diet 2.) Continue close supervision with meals. 3.) Refer to RD for further nutrition educ. and weight monitoring upon discharge. 4.) Continue current plan of care.
[2019-09-22 13:00] VITALS: BP 101/70
--- NOTE | 2019-09-22 15:40 | NUR ---
DR. WILLIAMSON IN TO SEE PT. EXPLAINED PLAN OF CARE TO PT. MD DISCHARGING PT HOME; ON RESUMPTION OF HOME MEDICATION SCHEDULING AND NEW PRESCRIPTION ORDERS; TO BE WRITTEN BY .
[2019-09-22 16:14] VITALS: BP 101/70
[2019-09-22 17:00] VITALS: BP 113/57
--- NOTE | 2019-09-22 17:40 | NUR ---
DISCHARGE INSTRUCTIONS PROVIDED TO PT. PT VERBALIZED UNDERSTANDING FOR PRESCRIPTION ORDERS AND FOLLOW UP APPOINTMENT WITH PCP. EDUCATIONAL MATERIALS PROVIDED, ALL QUESTIONS AND CONCERNS ADDRESSED. IV CATHETER DC'D, CATHETER INTACT, NO PHLEBITIS. TELE BOX REMOVED AND RETURNED TO TELE DEPT. PT AWAITING FOR TRANSPORT. ADVISED TO CALL WHEN TRANSPORT ARRIVES.
--- NOTE | 2019-09-22 18:08 | NUR ---
PT AMBULATED OUT OF UNIT; ACCOMPANIED BY SON.
== END 2019-09-22 18:20 | disposition home or self-care (01) | DRG 140 ==
LOC: ER 12:00 → TELE 12:01 → TELE-WESTW 20:33
PROVIDERS: ADMIT Internal Medicine; ATTEND Internal Medicine
DX: J44.0 Chronic obstructive pulmonary disease with (acute) lower respiratory infection (principal); J96.01 Acute respiratory failure with hypoxia; I50.41 Acute combined systolic (congestive) and diastolic (congestive) heart failure; J18.9 Pneumonia, unspecified organism; J45.901 Unspecified asthma with (acute) exacerbation; I11.0 Hypertensive heart disease with heart failure; K21.9 Gastro-esophageal reflux disease without esophagitis; I10 Essential (primary) hypertension; I25.10 Atherosclerotic heart disease of native coronary artery without angina pectoris; E78.5 Hyperlipidemia, unspecified; M19.90 Unspecified osteoarthritis, unspecified site; M10.9 Gout, unspecified; E66.9 Obesity, unspecified; J20.9 Acute bronchitis, unspecified
CPT/HCPCS: 36415; 71045; 71046; 71250; 80048; 80053; 81001; 83880; 84443; 84484; 84550; 85007; 85025; 85027; 87040; 87070; 87205; 87804; 93005; 93306; 94640; 97116; 97530; 99291; G0378; J0171; J0696; J1885